=== PATIENT | male | born 1985 | race Hispanic/Latino ===

== ENCOUNTER → 2019-06-27 14:45 | Outpatient (CLI) | payer OTHER, SELFPAY ==
--- NOTE | 2019-06-27 | DI.MRI.S_ITS ---
PROCEDURE: MR ANKLE LT WO CON INDICATIONS: Left achilles tendon pain TECHNIQUE: Noncontrast sagittal T1 spin echo and T2 fast spin echo with fat saturation, axial proton density fast spin echo and T2 fast spin echo with fat saturation, coronal T1 spin echo and T2 fast spin echo with fat saturation through the ankle/hindfoot. COMPARISON: None. FINDINGS: Image quality: Diagnostic. Bones and joints: No acute fracture, dislocation, or suspicious osseous lesion is identified involving the osseous structures of the midfoot or hindfoot. Ankle mortise is well-maintained. No osteochondral fragments are appreciated involving the tibial plafond for the talar dome. However, there is focal marrow edema evident along the anterior margin of the tibial plafond, related to a defect of the underlying hyaline articular cartilage. There is mild focal marrow edema evident along the tip of the medial malleolus without an associated fracture evident. Mild degenerative changes of the hindfoot joints are best appreciated involving the tibiotalar joint. No significant joint effusions are appreciated. There is a small enthesophyte identified at the Achilles tendon insertion on the calcaneal tuberosity. Medial structures: The deltoid and spring ligaments are intact. The tibialis posterior, flexor digitorum longus, and flexor hallucis longus tendons are intact. The posterior tibial nerve through the tarsal tunnel demonstrates increased signal and mild thickening, but is otherwise unremarkable. Lateral structures: The anterior and posterior distal tibiofibular ligaments appear intact. The anterior talofibular ligament is heterogeneous and may be at least partially torn. The posterior talofibular ligament and calcaneofibular ligament appear to be intact. Thickening of the calcaneofibular ligament is present. The peroneus brevis and peroneus longus tendons are intact. There is medial subluxation of the peroneus brevis tendon at the tip of the lateral malleolus with slight increased signal noted in the questionable short segment longitudinal split tear just below the tip of the lateral malleolus. There is mild increased signal involving the peroneus longus tendon. No significant tearing is identified. Incidental note is made of peroneus quartus, an accessory muscle/tendon, which is intact and otherwise unremarkable. Slight increased signal within the sinus tarsi is incidentally noted. Anterior structures: The tibialis anterior, extensor hallucis longus, and extensor digitorum longus tendons appear intact. Posterior and plantar structures: Achilles tendon is intact. However, there is slight increased signal identified involving the distal aspect of the Achilles tendon with low-grade partial-thickness tearing at its insertion. Medial and lateral bands of the plantar fascia are of normal thickness. IMPRESSION: 1. Mild degenerative changes of the tibiotalar joint. 2. Nonspecific prominence of the posterior tibial nerve through the tarsal tunnel. Please correlate clinically to exclude tarsal tunnel syndrome. 3. There is at least a chronic appearing partial thickness tear of the anterior talofibular ligament. A complete tear is difficult to exclude. 4. Mild peroneus brevis and peroneus longus tendinopathy with a possible short segment longitudinal split tear of the peroneus brevis tendon just beyond the lateral malleolus. 5. Mild distal Achilles tendinopathy with low-grade insertional partial-thickness tearing. There is an associated enthesophyte at this location. Dictated by: Luis Toro M.D. on 06/29/2019 at 15:35 Approved by: Luis Toro M.D. on 06/29/2019 at 15:49
== END ==
PROVIDERS: Visit Provider Family Medicine
DX: M25.572 Pain in left ankle and joints of left foot (principal); S86.012A Strain of left Achilles tendon, initial encounter; M76.62 Achilles tendinitis, left leg
CPT/HCPCS: 73721

== ENCOUNTER 2023-07-24 08:56 | Emergency (ER) | payer OTHER, SELFPAY ==
[2023-07-24 09:05] VITALS: BP 126/79; PULSE 50; RESP 16; TEMP 36.9; O2SAT 99; BMI 25.0
[2023-07-24 09:20] VITALS: O2SAT 94
[2023-07-24 09:21] VITALS: BP 126/79; PULSE 48; O2SAT 99
[2023-07-24 09:30] VITALS: PULSE 49; RESP 20; O2SAT 99
--- NOTE | 2023-07-24 09:47 | DI.RAD.S_ITS ---
PROCEDURE: XR CHEST 1V INDICATIONS: CHEST PAIN TECHNIQUE: One view of the chest was acquired. COMPARISON: None. FINDINGS: Surgical changes and devices: None. Lungs and pleura: Lungs are clear. No pleural effusions or pneumothorax. Mediastinum: Mediastinal contours appear normal. Heart size is normal. Bones and chest wall: No suspicious bony lesions. Overlying soft tissues appear unremarkable. IMPRESSION: Portable chest within normal limits for age. Dictated by: Tati Mancia M.D. on 07/24/2023 at 10:50 Approved by: Tati Mancia M.D. on 07/24/2023 at 10:50
--- NOTE | 2023-07-24 09:47 | ED.CHESTPAIN ---
HPI - Chest Pain General Chief Complaint: Chest Pain Stated Complaint: Mild Chest pain/Muscle pain he isn't sure Time Seen by Provider: 07/24/23 08:59 Source: patient Mode of arrival: Family Vehicle Limitations: no limitations History of Present Illness HPI narrative: 30-year-old male with no reported past medical history presents for left-sided chest pain. Patient states that he had a ground level fall yesterday and noticed some soreness, this morning he was bench pressing and he felt a ?pop? in his left chest. Patient is here today to make sure this is not a heart problem. Reports ongoing soreness around his sternum and left pectoralis muscle. Denies use of anabolic steroids Related Data Previous Rx's Medication Instructions Recorded methocarbamol 500 mg tablet 500 mg PO QID #30 tabs 07/24/23 Allergies Allergy/AdvReac Type Severity Reaction Status Date / Time No Known Drug Allergies Allergy Verified 07/24/23 10:15 Review of Systems Review of Systems Narrative: Negative except as noted above. Patient History Social History Smoking Status: Former smoker Smoking Status: Former smoker alcohol intake frequency: 0-2 drinks per day Substance Use Type: does not use Exam Initial Vital Signs Initial Vital Signs: Vital Signs Temperature 98.5 F 07/24/23 09:05 Pulse Rate 50 L 07/24/23 09:05 Respiratory Rate 16 07/24/23 09:05 Blood Pressure 126/79 07/24/23 09:05 Pulse Oximetry 99 07/24/23 09:05 Oxygen Delivery Method Room Air 07/24/23 09:05 Const: Awake, alert, no acute distress, nontoxic appearing Eyes: PERRL, EOMI, conjunctiva normal ENT: Atraumatic, dentition normal, mucous membranes moist Cardiac: regular rate, regular rhythm, L sternal pain, no pectoralis deformity RESP: unlabored, clear bilaterally, no wheezing GI: Atraumatic, soft, nontender, nondistended, no rebound, no guarding MSK: Atraumatic, full range of motion, pulses equal Skin: Warm, Dry, intact, no rashes Neuro: AO x3, CN II-XII grossly intact, moves all extremities Psych: affect normal, mood normal, not suicidal, not homicidal Course Course Course Narrative: Left chest wall pain, exacerbated by doing bench presses. No pectoralis deformity to suggest torn pectoralis muscle. EKG is normal sinus rhythm without any concerning findings. Heart score 0. Chest x-ray reviewed, unremarkable. Patient relieved of normal EKG and chest x-ray. He was advised to avoid heavy lifting to avoid exacerbating pectoralis strain. Short course of muscle relaxers sent to pharmacy. Recommended Tylenol and Motrin as needed for pain and discomfort. Gentle stretching advised. ED return precautions discussed at bedside. Patient expressed understanding of the plan and is in agreement at this time. All questions answered at the time of discharge. Orders Ordered: Discontinued Medications Methocarbamol (Methocarbamol 500 Mg Tablet) 750 mg PO NOW ONE Stop: 07/24/23 09:48 Last Admin: 07/24/23 10:33 Dose: 750 mg Documented By: NAVI Vital Signs Vital signs: Vital Signs - 8 hr 07/24/23 09:05 07/24/23 09:20 07/24/23 09:21 Temperature 98.5 F Pulse Rate 50 L Respiratory Rate 16 Blood Pressure 126/79 126/79 Pulse Oximetry 99 94 Oxygen Delivery Method Room Air 07/24/23 09:21 07/24/23 09:30 07/24/23 10:00 Temperature Pulse Rate 48 L 49 L 44 L Respiratory Rate 20 12 Blood Pressure Pulse Oximetry 99 99 98 Oxygen Delivery Method Discharge Plan Departure Patient Disposition: Home Clinical Impression: Pectoralis muscle strain Qualifiers: Encounter type: initial encounter Qualified Code(s): S29.011A - Strain of muscle and tendon of front wall of thorax, initial encounter Instructions: DI for Muscle Strain Prescriptions: New methocarbamol 500 mg tablet 500 mg PO QID Qty: 30 0RF Referrals: ProviderDequan [Primary Care Provider] - Stand Alone Forms: Patient Portal/API, Work Release Note
[2023-07-24 10:00] VITALS: PULSE 44; RESP 12; O2SAT 98
[2023-07-24] MEDS: methocarbamoL 500 MG TABLET 750 MG PO (10:33)
== END 2023-07-24 10:58 | disposition home or self-care (01) ==
PROVIDERS: Emergency Provider Emergency Medicine; Referring Provider Emergency Medicine
DX: S29.011A Strain of muscle and tendon of front wall of thorax, initial encounter (principal); R07.9 Chest pain, unspecified; W18.30XA Fall on same level, unspecified, initial encounter
CPT/HCPCS: 71045; 93005; 93010; 99283; 99284